=== PATIENT | female | born 1970 | race Asian ===

== ENCOUNTER → 2016-06-20 | Outpatient (CLI) | payer OTHER ==
[~2016-06-20] VITALS: Ht 152.4 cm; Wt 54.2 kg
[~2016-06-20] MED LIST: INSULIN HUMAN REGULAR 1,000 UNITS/10 ML VIAL SQ PRN; LACTATED RINGER'S 1000 ML IV SCH; METOPROLOL TARTRATE 25 MG TAB PO PRN; PROPOFOL 200 MG/20 ML AMP IV ONE; RESTCAP PO; SODIUM CHLORID 0.9% 500 ML IV SCH
[2016-06-20 09:09] VITALS: BP 99/64; PULSE 69; RESP 18; TEMP 98; O2SAT 100
[2016-06-20 11:20] VITALS: TEMP 98.2
[2016-06-20 11:40] VITALS: BP 113/69; PULSE 64; RESP 16; O2SAT 100
== END ==
LOC: HEND 07:21
PROVIDERS: ATTEND Internal Medicine Gastroenterology
DX: K29.50 Unspecified chronic gastritis without bleeding (principal); K44.9 Diaphragmatic hernia without obstruction or gangrene; R10.13 Epigastric pain
CPT/HCPCS: 88305; 88312